=== PATIENT | female | born 1955 | race Caucasian/White ===

== ENCOUNTER 2022-12-31 14:29 | Outpatient (AMB) | payer MEDICARE, BC, SELFPAY ==
--- NOTE | 2022-12-31 14:30 | MHC.OFFWIV ---
Intake Vital Signs 12/31/22 14:32 BP 140/90 H Blood Pressure Location Lt brachial Position Sitting Pulse 98 Pulse Source Pulse Oximeter Pulse Oximetry (%) 98 Oxygen Delivery Method Room Air Intake Visit Reasons: [employer] Nose Bleed Intake Note: Patient here for nose bleed that has been bleeding for about an hour. pt states she had one this morning and it went away. Patient Tobacco Use Status: Never used Tobacco Allergies acetaminophen [From Percocet] Adverse Reaction (Mild, Verified 12/31/22 14:31) Unknown ibuprofen Adverse Reaction (Mild, Verified 12/31/22 14:31) Unknown oxycodone [From Percocet] Adverse Reaction (Mild, Verified 12/31/22 14:31) Unknown Do you need a note to return to daycare/school/sports/work: No HPI HPI Comments History of Present Illness Details This is a 67-year-old female with a past medical history of hypertension presenting for evaluation of epistaxis. Patient states that she had a nosebleed this morning which lasted less than 30 minutes and recurred approximately 90 minutes ago. Patient is complaining of epistaxis from her right ear only. Patient denies any other symptoms including lightheadedness, fevers, chills, facial trauma or sore throat. Patient states that there is no blood running down the back of her throat. Patient states she has had nosebleeds previously which is why she was first put on hypertension medication. Patient states that she is compliant with her antihypertensive regimen daily. [facility] Social History Patient Tobacco Use Status: Never used Tobacco Review of Systems Const All systems reviewed & are unremarkable except as noted in HPI and below Denies fatigue and Denies weakness ENT Denies dizziness, Denies facial pain, Reports epistaxis (right nare) and Denies nasal trauma Neuro Denies dizziness and Denies weakness Psych Reports no additional complaints Endo Denies fatigue Physical Exam Vital Signs: Last Vital Signs Pulse 98 12/31/22 14:32 BP 140/90 H 12/31/22 14:32 Pulse Ox 98 12/31/22 14:32 Oxygen Delivery Method Room Air 12/31/22 14:32 Const General: cooperative, healthy appearing and no acute distress; No ill appearing or lethargic Orientation/consciousness: No lethargic Limitations: no limitations HEENT General nose exam: Normal external nose present, nares abnormal (active epistaxis right nare; no epistaxis left nare; no evidence of trauma) and Epistaxis present on the right anterior source and active bleeding; Negative for clots present Face and sinus: Yes sinuses nontender Mouth: Normal oral and palatal mucosa present and oropharynx normal (no blood noted in posterior oropharynx) Throat: Yes posterior oropharynx normal Psych Appearance: grossly normal Mental Status: mental status grossly normal Speech and movement: Normal speech and movement present Thought process: Normal thought process present Thought content: Normal thought content present Insight: Good insight present (Psych) Judgement: Good judgement present (Psych) Assessment & Plan Assessment & Plan (1) Epistaxis requiring cauterization: Code(s): R04.0 - Epistaxis Plan: There is an anterior source of the epistaxis visualized in the right nare and the lesion is cauterized x 2; secondary to minimal residual bleeding a rhino rocket is placed and the patient tolerated this procedure well. Upon reevaluation, the rhino rocket is removed and there is no residual bleeding. Patient will be discharged home. Coding Level of Care Code New Pt New Pt Level 4 (51898) Patient Type New History Problem Focused Exam Problem Focused Medical Decision Making Moderate Complexity Diagnoses Epistaxis requiring cauterization R04.0 Time Spent (min) 35
[2022-12-31 14:32] VITALS: BP 140/90; PULSE 98; O2SAT 98
== END 2022-12-31 15:41 | disposition home or self-care (01) ==
PROVIDERS: Visit Provider Physician Assistant
DX: R04.0 Epistaxis (principal)
CPT/HCPCS: 30901; 99204